=== PATIENT | female | born 1935 | race Caucasian/White ===

== ENCOUNTER 2020-03-05 11:24 | Outpatient (CLI) | payer MEDICARE, OTHER, SELFPAY ==
--- NOTE | ~2020-03-05 | XR_ITS ---
XR hip LT min 2V 03/05/2020 12:06 Indication: Left hip pain Procedure: 3 views left hip Comparison: No prior studies for comparison. Findings: Mild osteoarthritis of the left hip. There is lower lumbar spondylosis incompletely visuali zed. No fracture or traumatic malalignment. No focal soft tissue abnormality. No foreign bodies. Impression: 1: Mild osteoarthritis of the left hip. Reviewed, dictated and finalized at location A. Impression: 1: Mild osteoarthritis of the left hip.
--- NOTE | ~2020-03-05 | XR_ITS ---
EXAMINATION: XR knee LT min 4V DATE: 03/05/2020 12:06 INDICATION: Left knee pain TECHNIQUE: Four views of the left knee were obtained. COMPARISON: None. FINDINGS: Alignment is normal. No fracture or osteochondral lesion. There is mild tricompartmental os teoarthritis characterized by tiny marginal osteophytes. No joint effusion/synovitis. Soft tissues a re unremarkable. IMPRESSION: 1. No acute osseous abnormality. Reviewed, dictated and finalized at location A.
== END 2020-03-05 11:25 | disposition home or self-care (01) ==
LOC: ANHIMG 11:34
PROVIDERS: PCP Family Medicine; Visit Provider Family Medicine
DX: M25.552 Pain in left hip (principal); M25.562 Pain in left knee; M16.12 Unilateral primary osteoarthritis, left hip
CPT/HCPCS: 73502; 73564

== ENCOUNTER 2020-05-11 12:57 | Outpatient (CLI) | payer MEDICARE, OTHER, SELFPAY ==
--- NOTE | ~2020-05-11 | MM_ITS ---
EXAMINATION: MM diagnostic mammo unilat LT HISTORY: Follow-up left breast calcifications TECHNIQUE: Additional 3-D tomosynthesis images of the left breast were performed and synthetic 2-D im ages were generated. CAD analysis was submitted and interpreted. COMPARISON: Comparison to multiple prior studies sequentially, with oldest reviewed study dated 06/08. BREAST PARENCHYMAL COMPOSITION: The breasts are heterogenously dense, which may obscure small masses. FINDINGS: There are clustered calcifications in the upper outer quadrant of the left breast which hav e increased in number and density compared with prior examinations. These are not specifically benign . IMPRESSION: 1. Clustered nonspecific left breast calcifications, upper outer quadrant. 2. Stereotactic left breast biopsy recommended. BI-RADS category 4, suspicious findings. Reviewed, dictated and finalized at location B.
== END 2020-05-11 12:58 | disposition home or self-care (01) ==
LOC: ANHIMG 13:00
PROVIDERS: PCP Family Medicine; Visit Provider Physician Assistant
DX: R92.8 Other abnormal and inconclusive findings on diagnostic imaging of breast (principal)
CPT/HCPCS: 77065

== ENCOUNTER 2020-06-07 12:20 | Outpatient (CLI) | payer MEDICARE, OTHER, SELFPAY ==
--- NOTE | ~2020-06-07 | MM_ITS ---
EXAMINATION: MM stereotactic bx LT, MM post biopsy diagnostic LT, MM stereotactic specimen LT DATE: 06/07/2020 INDICATION: Abnormal calcifications in the left breast. Stereotactic core biopsy is requested evalua te for malignancy.] TECHNIQUE AND FINDINGS: Dr. Taye Elder performed the procedure. The risks and potential benefits of the procedure were discu ssed with the patient and written informed consent was obtained. The patient was placed in the prone position clustered at the table with the left breast in lateral medial compression, and the area of interest was localized and targeted utilizing digital imaging with stereotaxis. After sterile preparation of the skin, 1% lidocaine was utilized for local anesthesia at the skin pun cture site and 1% lidocaine with epinephrine was utilized for deeper local anesthesia/is about the bi opsy site. A 9G Kids Note vacuum assisted biopsy needle was advanced to the level of the calcification o f interest from a lateral approach utilizing stereotactic guidance and a total of 6 tissue core biops ies were obtained. A specimen radiograph demonstrates that the calcifications of interest are included within the tissue cores. A tissue marker clip was then placed at the biopsy site. The needle was removed and hemosta sis was achieved. The patient tolerated the procedure well and there is no evidence of significant i mmediate complication. The patient was given verbal as well as written postprocedural instructions p rior to discharge from the department. Tissue cores were submitted to surgical pathology for histolo gic analysis. A 2-view left unilateral digital mammogram was obtained post procedure and this demonstrates that the tissue marker clip is in expected position.] IMPRESSION: 1. Successful stereotactic biopsy of calcifications in the upper outer quadrant of the left breast, followed by tissue marker clip placement. Please refer to pathology report for histologic analysis. Reviewed, dictated and finalized at location A. IMPRESSION: 1. Successful stereotactic biopsy of calcifications in the upper outer quadran t of the left breast, followed by tissue marker clip placement. Please refer t o pathology report for histologic analysis. IMPRESSION: 1. Successful stereotactic biopsy of calcifications in the upper outer quadran t of the left breast, followed by tissue marker clip placement. Please refer t o pathology report for histologic analysis.
== END 2020-06-07 12:21 | disposition home or self-care (01) ==
PROVIDERS: PCP Family Medicine; Visit Provider Surgery
DX: R92.0 Mammographic microcalcification found on diagnostic imaging of breast (principal)
CPT/HCPCS: 19081; 77065; 88305; 88342; A4648

== ENCOUNTER → 2020-06-14 13:16 | Outpatient (CLI) | payer MEDICARE, OTHER, SELFPAY ==
--- NOTE | ~2020-06-14 | DEXA_ITS ---
Bone Density Report Name: Morena Gil Age: 84 Sex: Female Ethnicity: White Date of : 1935 Indication: postmenopausal; screening for osteoporosis; parental hip fracture; height loss; Referring Provider: DANNIE MOHAN Study: Bone densitometry was performed. Exam Date: June 14, 2020 Accession number: [id number] Bone Density: Region BMD T-score Z-score Classification AP Spine (L1-L4) 0.847 -1.8 1.0 Osteopenia Femoral Neck (Left) 0.730 -1.1 1.4 Osteopenia Total Hip (Left) 0.788 -1.3 0.9 Osteopenia Femoral Neck (Right) 0.737 -1.0 1.4 Normal Total Hip (Right) 0.834 -0.9 1.3 Normal Total Hip Mean 0.811 -1.1 1.1 Osteopenia World Health Organization criteria for BMD impression classify patients as: Normal (T-score at or above -1.0), Osteopenia (T-score between -1.0 and -2.5), or Osteoporosis (T-score at or below -2.5). 10-year Fracture Risk(1): Major Osteoporotic Fracture 21% Hip Fracture 11% Reported Risk Factors: [place] (), Neck BMD=0.730, BMI=24.4, parental fracture (1) FRAX(R) Version 3.08. Fracture probability calculated for an untreated patient. Fracture probability may be lower if the patient has received treatment. Clinical Information Provided by Patient: Parent has had a hip fracture Has used the following medications: Calcium Patient maximum height was 67.5 Menopause Age: 72 Onset of menses at age 11 Number of children 0 Impression: The patient has low bone mass, based on the Total Spine T-score. The patient has an estimated ten-year risk of hip fracture of 11% and an estimated ten-year risk of major fracture of 21%, based on the WHO FRAX algorithm. The patient has risk factors, including: parental hip fracture. Discussion: BONE DENSITY IS LOW AT ONE OR MORE SKELETAL SITES. THE PATIENT'S BMD AND CLINICAL RISK FACTORS CONTRIBUTE TO THIS PATIENT'S HIGH RISK OF FRACTURE. This patient's lowest T-score is low at one or more skeletal sites. It meets the World Health Organization's (WHO) criteria for ?low bone mass? (T-score between -1.0 and -2.5). The patient's 10-year risk of hip fracture and 10 year risk of a major osteoporotic fracture as calculated by FRAX exceeds the threshold where pharmacological therapy is recommended by the National Osteoporosis Foundation (NOF). However, all treatment decisions require clinical judgment and consideration of individual patient factors, including patient preferences, comorbidities, previous drug use, risk factors not captured in the FRAX model (e.g., frailty, falls, vitamin D deficiency, increased bone turnover, interval significant decline in bone density) and possible under or overestimation of fracture risk by FRAX. The patient should follow a healthful lifestyle (good nutrition with adequate calcium and vitamin D, and appropriate
== END ==
PROVIDERS: PCP Family Medicine; Visit Provider Physician Assistant
DX: Z78.0 Asymptomatic menopausal state (principal)
CPT/HCPCS: 77080

== ENCOUNTER 2020-06-19 06:05 | Outpatient (CLI) | payer MEDICARE, OTHER, SELFPAY ==
[2020-06-19 19:00] LABS: SARS-CoV-2 RNA PCR Negative
== END 2020-06-19 06:06 | disposition home or self-care (01) ==
LOC: ANHCOVIDDT 07-16 06:06
PROVIDERS: PCP Family Medicine; Visit Provider Surgery
DX: Z01.812 Encounter for preprocedural laboratory examination (principal); Z11.59 Encounter for screening for other viral diseases
CPT/HCPCS: 87635; C9803; U0003

== ENCOUNTER 2020-06-21 00:32 | Day surgery (SDC) | payer MEDICARE, OTHER, SELFPAY ==
[2020-06-19 13:11] VITALS: BMI 24.3
[2020-06-21] VITALS (8 sets, daily range): BP systolic 132–172; BP diastolic 65–85; PULSE 67–81; RESP 7–18; TEMP 35.9–36.6; O2SAT 94–100; BMI 24.4
--- NOTE | ~2020-06-21 | NM_ITS ---
NM sentinel node inject only 06/22/2020 10:43 CDT INDICATION: Left breast cancer] TECHNIQUE: 1 Millicuries Tc 99m filtered sulfur colloid was injected and 4 aliquots in the anterior u pper outer quadrant of the breast near the areola. No images were obtained. IMPRESSION: 1: Left breast sentinel lymph node radiopharmaceutical injection. Reviewed, dictated and finalized at location A.
--- NOTE | ~2020-06-21 | MM_ITS ---
EXAMINATION: MM surgical specimen LT, MM needle loc LT MAMMOGRAPHY SPECIMEN DATE: 06/21/2020 13:31 CDT INDICATION: Abnormal left breast mammogram. TECHNIQUE: The procedure for a mammography-guided needle localization was discussed with the patient' s. Risks and benefits were detailed, including risks of bleeding, infection, pain, and nondiagnostic specimen. The patient verbalized understanding and agreed to proceed. The time out was performed to verify the patient's name, date of , and site of procedure. The p atient was placed in left breast compression, and the skin overlying the left breast was prepped in u sual fashion. Utilizing mammography guidance, a needle was advanced into the left breast. Two confi rmatory films were obtained. The patient tolerated procedure without immediate complication. A specimen radiograph was performed. FINDINGS: Two view confirmatory films of the left breast demonstrate a the wire adjacent to the tissu e marker. The tissue marker is contained within the surgical specimen.] IMPRESSION: 1. Successful mammography-guided left breast needle localization. Reviewed, dictated and finalized at location A. IMPRESSION: 1. Successful mammography-guided left breast needle localization.
--- NOTE | 2020-06-21 08:29 | ECG_ITS ---
Measurements Intervals [place] Rate: 75 P: 16 AK: 184 QRS: 29 QRSD: 71 T: 30 QT: 370 QTc: 415 Interpretive Statements SINUS RHYTHM NORMAL ECG Electronically Signed On 06-21-2020 10:59:19 CDT by Hilton Flores D.O.
--- NOTE | 2020-06-21 09:37 | SUR.PREOP ---
0900; PT TO MAMMS PER W/C
--- NOTE | 2020-06-21 09:57 | SUR.PREOP ---
0945; PT RETURNED FROM [facility]. WALKED TO BATHROOM, VOIDED.
[2020-06-21] MEDS: LACTATED RINGERS 1,000 ML 30 ML IV CONT ×2 (09:58→13:38)
--- NOTE | 2020-06-21 10:02 | WPDHPUPDATE1 ---
History and Physical Update Update Date/Time: 06/21/20 10:03 History and Physical has been reviewed, including an updated exam of the patient. There are NO changes in the patient's condition. Risks, benefits, and alternatives have been discussed and questions answered. Patient agrees to proceed with procedure.
--- NOTE | 2020-06-21 11:25 | SUR.PREOP ---
1115; PT AWARE THAT DR DANIELS IS 1 HOUR BEHIND. PT WANTS TO SIT IN RECLINER. RECLINER BROUGHT TO PREOP ROOM
--- NOTE | 2020-06-21 11:44 | WPDANESEPPF ---
Anes - Initial Pre Proc Eval Procedure: Operation Date: 06/21/20 11:00 Proposed Procedures p Ultrasound and/or Mammogram Guided Wire Localization Left Breast Lumpectomy - Jeannie Thomson MD s Left Axillary [place] Lymph Node Biopsy - Jeannie Thomson MD Date/Time: 06/21/20 11:44 Surgeon: Jeannie Thomson MD Pre Op Diagnosis: left breast DCIS Patient Data Age: 84 Gender: F Height: 5 ft 6 in Weight: 68.7 kg Last Vital Signs Temp 35.9 C L 06/21/20 08:35 Pulse 81 06/21/20 08:35 Resp 18 06/21/20 08:35 BP 154/75 H 06/21/20 08:35 Pulse Ox 97 06/21/20 08:35 Allergies Allergy/AdvReac Type Severity Reaction Status Date / Time Penicillins Allergy Unknown Rash Verified 06/21/20 08:49 Sulfa (Sulfonamide Allergy Unknown Rash Verified 06/21/20 08:49 Antibiotics) Home Medications Medication Instructions Recorded Confirmed Type benazepril 20 mg tablet 20 mg PO DAILY #90 tablet 07/25/19 06/21/20 Rx amlodipine 2.5 mg PO HS 06/19/20 06/21/20 History clonazepam 0.5 mg PO DAILY PRN 06/19/20 06/21/20 History Patient hx anesthesia problems: none Family hx anesthesia problems: none PMFSH Past Medical History Medical History Ductal carcinoma in situ (DCIS) of left breast H/O sciatica HTN (hypertension) IFG (impaired fasting glucose) Mitral valve prolapse RLS (restless legs syndrome) Surgical History Surgical History History of breast biopsy 05/30/20: stereotactic breast bx History of bunionectomy of right great toe History of lumbar discectomy History of tonsillectomy Status post left foot surgery Family History Family History Father Hypertension Cerebrovascular accident Family history of coronary artery disease Mother Hypertension Family history of coronary artery disease Social History Social History Smoking status: Never smoker Second hand tobacco smoke exposure: No Alcohol intake: current Drinks per week: 1 Alcohol use details: PT STATES VERY RRELY Substance use: never Substance use type: does not use Living arrangements: with family Gender identity (if verbalized by the patient): Female Spiritual care concerns: No Anes - Eval Final PreProcedure Day of Procedure 06/21/20 11:44 Patient weight: normal Heart: regular rate and rhythm Lungs: clear to auscultation Airway: Mallampati scale class II Neurological: alert and oriented Last oral intake: >/= 8 hours ASA classification: III Emergent: no Anesthetic plan: proceed Anesthesia type and monitoring: general LMA and standard monitoring Informed Consent: The patient's anesthetic plan and its attendant risks and benefits were discussed with the patient/family/POA. Questions were solicited and answers provided to the satisfaction of the patient/family/POA.
[2020-06-21] MEDS: ceFAZolin 2 GM/D5W 50 ML 2 GM/50 ML BAG IVPB (12:15)
--- NOTE | 2020-06-21 13:28 | SUR.OPER ---
Lumpectomy Incision- 1307 Excision- 1317 Out of room- [address] Thomson- [id number]
--- NOTE | 2020-06-21 13:37 | P.OP_ITS ---
Procedure Note - Detailed Date of procedure: 06/21/20 Pre-op diagnosis: left breast DCIS Post-op diagnosis: same Procedure performed: Left axillary sentinel lymph node biopsy with preoperative lymphoscintigraphy, left breast lumpectomy with preoperative needle localization Description of procedure: The patient was taken to the operating room and placed in the supine position. After adequate induction of general anesthesia, the patient was prepped and draped in the normal sterile fashion. A time-out was done to verify the patient's identity, as well as the procedure being performed. I began by injecting blue dye into all 4 quadrants of the nipple areolar complex. This was done with approximately 1 cc in each quadrant in the subcutaneous tissue. I then massaged the dye into the left axilla. I then proceeded to use the [place] counter to identify a hot spot in the left axilla. Once this was achieved, I used a 15 blade scalpel to make an incision over this hot spot . I then carried this incision down into the axilla. I then again used the [place] counter to identify a hot lymph node. It was noted at this point that there was a hot and blue lymph node. This was the sentinel lymph node and I carefully dissected this lymph node for excision. I was able to identify the vasculature going into the lymph node and this was clipped and transected. The lymph node will be sent to pathology for further review. There was an additional lymph node in this area that was also slightly blue and hot and will also be sent to pathology as part of the sentinel lymph node specimen. I again probed the axilla with the [place] counter and no other hot spots were identified. I then closed the axilla with 3 0 Vicryl suture. The skin was closed with 4 O Monocryl subcuticular suture. I then began the lumpectomy. I made an incision just medial to the wire following the lines of [place]. Once incision was made through the dermis, I made flaps and brought the wire into the operative field. I was able to palpate the direction of the wire in was able to at this point do a wide local excision around this wire. This was done with the [place] cautery. Once the specimen was completely removed, it was sent to radiology for confirmation of the wire and clip placement. This was confirmed by Radiology. At this point , I closed the subcutaneous tissue with 3 0 Vicryl suture. The skin was again closed with 4 O Monocryl subcuticular suture. Dermabond was placed on all wounds. The patient tolerated the procedure well and was extubated in the operating room postoperative. She will be sent to the recovery room in stable condition. Anesthesia: GLMA Surgeon: Jeannie Thomson MD Estimated blood loss (mL): 20 Drains: No Packing: No Pathology: yes Complications: No immediate complications Condition: stable Disposition: PACU Findings: Blue and hot lymph node, wire localized lumpectomy
[2020-06-21] MEDS: fentaNYL CITRATE INJ (*CRX) 100 MCG/2 ML VIAL 25 MCG IV PUSH ×3 (14:04→14:13)
== END 2020-06-21 15:40 | disposition home or self-care (01) ==
PROVIDERS: PCP Family Medicine; Visit Provider Surgery
PROC: (CPT 19301; principal; 2020-06-21 11:00)
PROC: (CPT 19301; 2020-06-21 11:00)
DX: D05.12 Intraductal carcinoma in situ of left breast (principal); I10 Essential (primary) hypertension; I34.1 Nonrheumatic mitral (valve) prolapse; G25.81 Restless legs syndrome
CPT/HCPCS: 19301; 38525; 19281; 38792; 76098; 88307; 93005; A9270; A9520; C1769; J0690; J2370; J2405; J2704; J3010; J7120

== ENCOUNTER 2024-11-20 10:48 | Emergency (ER) | payer MEDICARE, OTHER, SELFPAY ==
--- OUTSIDE RECORDS SUMMARY | 2024-11-20 10:50 | XMS_ITS ---
Author Organization [facility] Address [address] [place] [address] Care Team Providers Care Interface Analyst Name Role Phone Delta Conn MD Primary Care Provider Nadya Coronado Unavailable [phone] REASON FOR VISIT SCIT - Traditional Schedule Allergy immunotherapy Medications Medication SIG (Take, Route, Frequency, Duration) Notes Start Date End Date Status AMLODIPINE 2.5 mg 1 tab(s) orally once a day Not-Taking BENAZEPRIL 20 mg 1 tab(s) orally once a day Not-Taking amLODIPine Besylate 2.5 MG 1 tab(s) orally once a day Active CLONAZEPAM 0.5 mg 1 tab(s) orally QHS Not-Taking Artificial Tears PRESERVED 1 GTT IN EACH EYE 3 TIMES A DAY for 30 DAY(S) *Please review and pick correct strength-formula tion from [employer] options. If intended option is not shown, discontinue and re-order from Quick Search* Not-Taking ARTIFICIAL TEARS preserved 1 gtt in each eye 3 times a day for 30 day(s) Active Cetirizine HCl 10 MG 1 tab(s) orally once a day Active EpiPen 2-Brayden 0.3 MG/0.3ML as directed Injection Active clonazePAM 0.5 MG 1 tab(s) orally QHS Active Benazepril HCl 20 MG 1 tab(s) orally once a day Active EPINEPHRINE AUTO-INJECTOR 0.3 mg as directed intramuscularly once for 1 days Active CETIRIZINE HYDROCHLORIDE 10 mg 1 tab(s) orally once a day Active Encounters Encounter Location Date Provider Diagnosis [facility] [address] [place] [address] 11/01/2024 Nadya Camp Allergic rhinitis du e to pollen J30.1 ; Allergic rhinitis due to animal (cat) (dog) hair and dander J30.81 ; Other allergic rhinitis J30.89 and Other chronic allergic conjunctivitis H10.45 Assessments Encounter Date Diagnosis (ICD Code) Assessment Notes Treatment Notes Treatment Clinical Notes Section Notes 11/01/2024 Allergic rhinitis due to pollen (ICD-10 - J30.1) 11/01/2024 Allergic rhinitis due to animal (cat) (dog) hair and dander (ICD-10 - J30.81) 11/01/2024 Other allergic rhinitis (ICD-10 - J30.89) 11/01/2024 Other chronic allergic conjunctivitis (ICD-10 - H10.45) Plan Of Treatment Next Appt Details Follow Up: 1 Week, Reason: Provider Name:Nadya hammonds, 11/30/2024 09:00:00 AM, [address] [facility] [employer], [address], [place], [address], Progress Notes * Morena HENRIQUEZDOB:[birth year] (89 yo F)Acc No.[id number]:11/01/2024 SCIT-Aeroallergen Patient: Johanna WOOTEN Morena PERKINS Provider: Nirmala Camp MD :1935 A ge:89 Y S ex:Female Date:11/01/2024 Address:[address] [place] [address], [id number] Pcp:Delta Conn MD Subjective: * Chief Complaints: * S CIT - Traditional Schedule Allergy immunotherapy * HPI: * Introduction: The patient is here for scheduled immunotherapy. Please see the attached specialty form regarding the specifics of the administration of these vaccines. As per our protocol, they must undergo a screening health questionnaire (medication changes, reaction(s) to last immunotherapy dose(s), current health status, ACT (if appropriate), self-injectable epinephrine on patient(?) and peak flow (if appropriate)). Also, the patient must wait in our office for 30 minutes after receiving the vaccine(s). Furthermore, every patient must have an epinephrine pen (self-injectable) with them at the time of administration--and carry if for the following 1.5 hours after they leave our office. The patient must also have taken their antihistamine the day of the injection, preferably 2 hours prior. The consent form for SCIT (subcutaneous immunotherapy) is on file. * Medical History: * Surgical History: * Hospitalization/Major Diagno stic Procedure: * Medications: T akingEPINEPHRINE AUTO-INJECTOR 0.3 mg kit as directed intramuscularly once CETIRIZINE HYDROCHLORIDE 10 mg tablet 1 tab(s) orally once a day ARTIFICIAL TEARS preserved solution 1 gtt in each eye 3 times a day EpiPen 2-Brayden 0.3 MG/0.3ML Solution Auto-injector as directed Injection Cetirizine HCl 10 MG Tablet 1 tab(s) orally once a day clonazePAM 0.5 MG Tablet 1 tab(s) orally QHS Benazepril HCl 20 MG Tablet 1 tab(s) orally once a day amLODIPine Besylate 2.5 MG Tablet 1 tab(s) orally once a day Taking EPINEPHRINE AUTO-INJECTOR 0.3 mg kit as directed intramuscularly once Taking CETIRIZINE HYDROCHLORIDE 10 mg tablet 1 tab(s) orally once a day Taking ARTIFICIAL TEARS preserved solution 1 gtt in each eye 3 times a day Taking EpiPen 2-Brayden 0.3 MG/0.3ML Solution Auto-injector as directed Injection Taking Cetirizine HCl 10 MG Tablet 1 tab(s) orally once a day Taking clonazePAM 0.5 MG Tablet 1 tab(s) orally QHS Taking Benazepril HCl 20 MG Tablet 1 tab(s) orally once a day Taking amLODIPine Besylate 2.5 MG Tablet 1 tab(s) orally once a day Not-Taking/PRNArtificial Tears PRESERVED SOLUTION 1 GTT IN EACH EYE 3 TIMES A DAY , Notes to Pharmacist: *Please review and pick correct strength-formulation from [employer] options. If intended option is not shown, discontinue and re-order from Quick Search*CLONAZEPAM 0.5 mg tablet 1 tab(s) orally QHS BENAZEPRIL 20 mg tablet 1 tab(s) orally once a day AMLODIPINE 2.5 mg tablet 1 tab(s) orally once a day Not-Taking/PRN Artificial Tears PRESERVED SOLUTION 1 GTT IN EACH EYE 3 TIMES A DAY , Notes to Pharmacist: *Please review and pick correct strength-formulation from [employer] options. If intended option is not shown, discontinue and re-order from Quick Search*Not-Taking/PRN CLONAZEPAM 0.5 mg tablet 1 tab(s) orally QHS Not-Taking/PRN BENAZEPRIL 20 mg tablet 1 tab(s) orally once a day Not-Taking/PRN AMLODIPINE 2.5 mg tablet 1 tab(s) orally once a day Objective: * Vitals: Assessment: * Assessment: 1. A llergic rhinitis due to pollen - J30.1 (Primary) 2 . A llergic rhinitis due to animal (cat) (dog) hair and dander - J30.81 3 . O ther allergic rhinitis - J30.89 4 . O ther chronic allergic conjunctivitis - H10.45 Plan: * Treatment: * Procedure Codes: 9 5117 IMMUNOTHERAPY INJECTIONS * Preventive Medicine: Counseling: E xercise A void heavy lifting on days of allergy immunotherapy. M edication instruction: I njectable epinephrine education and instruction w/ discussion of signs and symptoms of anaphylaxis and reasons to seek urgent or emergent care, Watch for side effects of prescribed medications. E ducation: A ble to return demonstration of self-injectable epinephrine. * Follow Up: 1 Week * Billing Information: * Visit Code: * Procedure Codes: 99839 IMMUNOTHERAPY INJECTIONS. * ORATE ACCOUNT EXECUTIVE Sign off status: Completed true * Provider: Nirmala Camp MD Date: 0 11/01/2024 Generated for Shelly hurley/Cesar/Suniitting on: 0 11/20/2024 10:50 AM CDT History and Physical Notes * HPI (History of Present Illness) Category Sub-Category Detail Notes Category Not es *Introduction The patient is here for scheduled immunotherapy. Please see the attached specialty form regarding the specifics of the administration of these vaccines. As per our protocol, they must undergo a screening health questionnaire (medication changes, reaction(s) to last immunotherapy dose(s), current health status, ACT (if appropriate), self-injectable epinephrine on patient(?) and peak flow (if appropriate)). Also, the patient must wait in our office for 30 minutes after receiving the vaccine(s). Furthermore, every patient must have an epinephrine pen (self-injectable) with them at the time of administration--and carry if for the following 1.5 hours after they leave our office. The patient must also have taken their antihistamine the day of the injection, preferably 2 hours prior. The consent form for SCIT (subcutaneous immunotherapy) is on file.
--- OUTSIDE RECORDS SUMMARY | 2024-11-20 10:50 | XMS_ITS ---
Author Organization [facility] Address [address] [place] [address] Care Team Providers Care Sap Sd Analyst Name Role Phone Delta Conn MD Primary Care Provider Nadya Coronado Unavailable [phone] REASON FOR VISIT SCIT - Traditional Schedule Allergy immunotherapy Medications Medication SIG (Take, Route, Frequency, Duration) Notes Start Date End Date Status BENAZEPRIL 20 mg 1 tab(s) orally once a day Not-Taking AMLODIPINE 2.5 mg 1 tab(s) orally once a day Not-Taking Artificial Tears PRESERVED 1 GTT IN EACH EYE 3 TIMES A DAY for 30 DAY(S) *Please review and pick correct strength-formula tion from Ob Hospitalist Groupspan options. If intended option is not shown, discontinue and re-order from Quick Search* Not-Taking CLONAZEPAM 0.5 mg 1 tab(s) orally QHS Not-Taking amLODIPine Besylate 2.5 MG 1 tab(s) orally once a day Active EpiPen 2-Brayden 0.3 MG/0.3ML as directed Injection Active Cetirizine HCl 10 MG 1 tab(s) orally once a day Active ARTIFICIAL TEARS preserved 1 gtt in each eye 3 times a day for 30 day(s) Active clonazePAM 0.5 MG 1 tab(s) orally QHS Active Benazepril HCl 20 MG 1 tab(s) orally once a day Active EPINEPHRINE AUTO-INJECTOR 0.3 mg as directed intramuscularly once for 1 days Active CETIRIZINE HYDROCHLORIDE 10 mg 1 tab(s) orally once a day Active Encounters Encounter Location Date Provider Diagnosis [facility] [address] [facility] [address] [place] [address] 09/27/2024 Nadya Camp Allergic rhinitis du e to pollen J30.1 ; Allergic rhinitis due to animal (cat) (dog) hair and dander J30.81 ; Other allergic rhinitis J30.89 and Other chronic allergic conjunctivitis H10.45 Assessments Encounter Date Diagnosis (ICD Code) Assessment Notes Treatment Notes Treatment Clinical Notes Section Notes 09/27/2024 Allergic rhinitis due to pollen (ICD-10 - J30.1) 09/27/2024 Allergic rhinitis due to animal (cat) (dog) hair and dander (ICD-10 - J30.81) 09/27/2024 Other allergic rhinitis (ICD-10 - J30.89) 09/27/2024 Other chronic allergic conjunctivitis (ICD-10 - H10.45) Plan Of Treatment Next Appt Details Follow Up: 1 Week, Reason: Provider Name:Nadya hammonds, 11/30/2024 09:00:00 AM, [address] [facility] [employer], [address], [place], [address], Progress Notes * Morena HENRIQUEZDOB:[birth year] (88 yo F)Acc No.[id number]:09/27/2024 SCIT-Aeroallergen Patient: Johanna WOOTEN Morena PERKINS Provider: Nirmala Camp MD :1935 A ge:88 Y S ex:Female Date:09/27/2024 Address:[address] [place] [address], [address] Pcp:Delta Conn MD Subjective: * Chief Complaints: [...] *Please review and pick correct strength-formulation from Ob Hospitalist Groupspan options. If intended option is not shown, [...] Information: * Visit Code: * Procedure Codes: 63049 IMMUNOTHERAPY INJECTIONS. * ULATING MACHINE OPERATOR Sign off status: Completed true * Provider: Nirmala Camp MD Date: 0 09/27/2024 Generated for Shelly hurley/Cesar/Suniitting on: 0 11/20/2024 [...]
--- OUTSIDE RECORDS SUMMARY | 2024-11-20 10:50 | XMS_ITS | Patient Health Record ---
Author Organization [facility] Lucia mejia Billing Info Address [address] [place] [id number] Support Name Relationship Address Phone Morena Gil Guarantor Unknown [phone] Reason For Referral No Information Problems Problem Type SNOMED Code ICD Code Onset Dates Problem Status W/U Status Risk Notes Problem [id number] Acute upper respiratory infections of unspecified site (465.9) Active confirmed Migrated-Pr oblemList-3 [id number] [facility]-2012 Plan Of Treatment No Information Insurance Providers Payer Name Payer Address Payer Phone Subscriber Number Group Number Insured Name Patient Relationship to Insured Coverage Start Date Coverage End Date [place]ARE [place] PART B [address] [facility] [place] [id number] [phone] [id number] Morena Gil Self - patient is the insured 3 [facility] [address] [place], [place] [id number] Morena Gil Self - patient is the insured 3 3
--- OUTSIDE RECORDS SUMMARY | 2024-11-20 10:51 | XMS_ITS | Encounter Summary ---
Author Organization [facility] Address [address] [place] [address] Care Team Providers Care Youth Services Librarian Name Role Phone Nigel Masters MD, Aleta Lucas Primary Care Provider Paula vailable Encounter Details Date Type Department Care Team (Latest Contact Info) Description 06/17/2004 Outpatient Historical HIS [facility] LATASHA Manning Jr., Aleta Lucas MD NO ADDRESS ON FILE MAMMOGRAPHIC MICROCALCIFICATION (Primary Dx) Social History Tobacco Use Types Packs/Day Years Used Date Smoking Tobacco: Never Assessed Comments Unknown Sex and Gender Information Value Date Recorded Sex Assigned at Not on file Legal 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
--- OUTSIDE RECORDS SUMMARY | 2024-11-20 10:51 | XMS_ITS | Patient Health Record ---
Author Organization [facility] Address [address] [place] [address] Care Team Providers Care Trip Follower Name Role Phone Delta Conn MD Primary Care Provider Unavaila Nadya Orozco Unavailable [phone] [facility], Provider Unavailable Unavailab le Allergies No Known Allergies Reason For Referral No Information Medications Medication SIG (Take, Route, Frequency, Duration) Notes Start Date End Date Status EPINEPHRINE AUTO-INJECTOR 0.3 mg as directed intramuscularly once for 1 days Active AMLODIPINE 2.5 mg 1 tab(s) orally once a day Not-Taking BENAZEPRIL 20 mg 1 tab(s) orally once a day Not-Taking ARTIFICIAL TEARS preserved 1 gtt in each eye 3 times a day for 30 day(s) Active CETIRIZINE HYDROCHLORIDE 10 mg 1 tab(s) orally once a day Active Cetirizine HCl 10 MG 1 tab(s) orally once a day Active EpiPen 2-Brayden 0.3 MG/0.3ML as directed Injection Active clonazePAM 0.5 MG 1 tab(s) orally QHS Active amLODIPine Besylate 2.5 MG 1 tab(s) orally once a day Active Benazepril HCl 20 MG 1 tab(s) orally once a day Active CLONAZEPAM 0.5 mg 1 tab(s) orally QHS Not-Taking Artificial Tears PRESERVED 1 GTT IN EACH EYE 3 TIMES A DAY for 30 DAY(S) *Please review and pick correct strength-formula tion from Medispan options. If intended option is not shown, discontinue and re-order from Quick Search* Not-Taking Social History Tobacco Use: Social History Observation Description Date Details (start date - stop date) Never Smoker NA - NA Smoking Smart Form: Question Answer Notes Are you a: never smoker Problems Problem Type SNOMED Code ICD Code Onset Dates Problem Status W/U Status Risk Notes Problem Chronic allergic conjunctivitis (44302089) Other chronic allergic conjunctivitis (H10.45) Active confirmed Problem Allergic rhinitis caused by pollen (disorder) (82459966) Allergic rhinitis due to pollen (J30.1) Active confirmed Problem Allergic rhinitis (66200380) Other allergic rhinitis (J30.89) Active confirmed Problem Allergic rhinitis caused by animal hair and dander (602067348176481) Allergic rhinitis due to animal (cat) (dog) hair and dander (J30.81) Active confirmed Vital Signs Oximetry 97 % 08/02/2024 Blood pressure diastolic 79 mm Hg 08/02/2024 Height 66 in 08/02/2024 Blood pressure systolic 148 mm Hg 08/02/2024 Weight 152 lbs 08/02/2024 BMI 24.53 kg/m2 08/02/2024 Encounters Encounter Location Date Provider Diagnosis [address] [phone] 02/20/2024 Provider [facility] [address] [place] [phone] 11/25/2023 Nadya Camp Allergic rhinitis du e to pollen J30.1 ; Allergic rhinitis due to animal (cat) (dog) hair and dander J30.81 ; Other allergic rhinitis J30.89 and Other chronic allergic conjunctivitis H10.45 [facility] [address] [place] [phone] 12/02/2023 Nadya Camp Allergic rhinitis du e to pollen J30.1 ; Allergic rhinitis due to animal (cat) (dog) hair and dander J30.81 ; Other allergic rhinitis J30.89 and Other chronic allergic conjunctivitis H10.45 [facility] [address] [place] [phone] 12/09/2023 Nadya Camp Allergic rhinitis du e to pollen J30.1 ; Allergic rhinitis due to animal (cat) (dog) hair and dander J30.81 ; Other allergic rhinitis J30.89 and Other chronic allergic conjunctivitis H10.45 [facility] [address] [place], [place] [email or web address] [address] [place] [address] 12/16/2023 Nadya Camp Allergic rhinitis du e to pollen J30.1 ; Allergic rhinitis due to animal (cat) (dog) hair and dander J30.81 ; Other allergic rhinitis J30.89 and Other chronic allergic conjunctivitis H10.45 [facility] [address] [place], [place] [email or web address] [address] [place] [address] 12/23/2023 Nadya Camp Allergic rhinitis du e to pollen J30.1 ; Allergic rhinitis due to animal (cat) (dog) hair and dander J30.81 ; Other allergic rhinitis J30.89 and Other chronic allergic conjunctivitis H10.45 [facility] [address] [place], [place] [email or web address] [address] [place] [address] 12/30/2023 Nadya Camp Allergic rhinitis du e to pollen J30.1 ; Allergic rhinitis due to animal (cat) (dog) hair and dander J30.81 ; Other allergic rhinitis J30.89 and Other chronic allergic conjunctivitis H10.45 [facility] [address] [place], [place] [email or web address] [address] [place] [address] 01/06/2024 Nadya Camp Allergic rhinitis du e to pollen J30.1 ; Allergic rhinitis due to animal (cat) (dog) hair and dander J30.81 ; Other allergic rhinitis J30.89 and Other chronic allergic conjunctivitis H10.45 [facility] [address] [place], [place] [email or web address] [address] [place] [phone] 01/13/2024 Nadya Camp Allergic rhinitis du e to pollen J30.1 ; Allergic rhinitis due to animal (cat) (dog) hair and dander J30.81 ; Other allergic rhinitis J30.89 and Other chronic allergic conjunctivitis H10.45 [facility] [address] [place], [place] [address] [address] [place] [phone] 01/20/2024 Nadya Camp Allergic rhinitis du e to pollen J30.1 ; Allergic rhinitis due to animal (cat) (dog) hair and dander J30.81 ; Other allergic rhinitis J30.89 and Other chronic allergic conjunctivitis H10.45 [facility] [address] [place], [place] [email or web address] [address] [place] [address] 01/27/2024 Nadya Camp Allergic rhinitis du e to pollen J30.1 ; Allergic rhinitis due to animal (cat) (dog) hair and dander J30.81 ; Other allergic rhinitis J30.89 and Other chronic allergic conjunctivitis H10.45 [facility] [address] [place], [place] [email or web address] [address] [place] [address] 02/03/2024 Nadyatosha Camp Allergic rhinitis du e to pollen J30.1 ; Allergic rhinitis due to animal (cat) (dog) hair and dander J30.81 ; Other allergic rhinitis J30.89 and Other chronic allergic conjunctivitis H10.45 [facility] [address] [place], [place] [email or web address] [address] [place] [address] 02/17/2024 Nadya Camp Allergic rhinitis du e to pollen J30.1 ; Allergic rhinitis due to animal (cat) (dog) hair and dander J30.81 ; Other allergic rhinitis J30.89 and Other chronic allergic conjunctivitis H10.45 [facility] [address] [place], [place] [email or web address] [address] [place] [address] 02/24/2024 Nadya Camp Allergic rhinitis du e to pollen J30.1 ; Allergic rhinitis due to animal (cat) (dog) hair and dander J30.81 ; Other allergic rhinitis J30.89 and Other chronic allergic conjunctivitis H10.45 [facility] [address] [place], [place] [email or web address] [address] [place] [address] 03/02/2024 Nadyatosha Camp Allergic rhinitis du e to pollen J30.1 ; Allergic rhinitis due to animal (cat) (dog) hair and dander J30.81 ; Other allergic rhinitis J30.89 and Other chronic allergic conjunctivitis H10.45 [facility] [address] [place], [place] [address] [address] [place] [phone] 03/09/2024 Nadyatosha Camp Allergic rhinitis du e to pollen J30.1 ; Allergic rhinitis due to animal (cat) (dog) hair and dander J30.81 ; Other allergic rhinitis J30.89 and Other chronic allergic conjunctivitis H10.45 [facility] [address] [place], [place] [email or web address] [address] [place] [phone] 03/16/2024 Nadya Kamm Allergic rhinitis du e to pollen J30.1 ; Allergic rhinitis due to animal (cat) (dog) hair and dander J30.81 ; Other allergic rhinitis J30.89 and Other chronic allergic conjunctivitis H10.45 [facility] [address] [place], [place] [email or web address] [address] [address] 03/23/2024 Nadya Zoë Allergic rhinitis du e to pollen J30.1 ; Allergic rhinitis due to animal (cat) (dog) hair and dander J30.81 ; Other allergic rhinitis J30.89 and Other chronic allergic conjunctivitis H10.45 [facility] [address] [place] [address] [employer] [address] [address] 03/30/2024 Nadyatosha Kamm Allergic rhinitis du e to pollen J30.1 ; Allergic rhinitis due to animal (cat) (dog) hair and dander J30.81 ; Other allergic rhinitis J30.89 and Other chronic allergic conjunctivitis H10.45 [facility] [address] [place] [address] [employer] [address] [address] 04/06/2024 Nadyatosha Kamm Allergic rhinitis du e to pollen J30.1 ; Allergic rhinitis due to animal (cat) (dog) hair and dander J30.81 ; Other allergic rhinitis J30.89 and Other chronic allergic conjunctivitis H10.45 [facility] [address] [place], [place] [email or web address] [address] [place] [address] 04/13/2024 Nadya Zoë Allergic rhinitis du e to pollen J30.1 ; Allergic rhinitis due to animal (cat) (dog) hair and dander J30.81 ; Other allergic rhinitis J30.89 and Other chronic allergic conjunctivitis H10.45 [facility] [address] [place], [place] [address] [address] [place] [phone] 04/28/2024 Nadya Zoë Allergic rhinitis du e to pollen J30.1 ; Allergic rhinitis due to animal (cat) (dog) hair and dander J30.81 ; Other allergic rhinitis J30.89 and Other chronic allergic conjunctivitis H10.45 [facility] [address] [place], [place] [email or web address] [address] [address] 05/11/2024 Nadya Camp Allergic rhinitis du e to pollen J30.1 ; Allergic rhinitis due to animal (cat) (dog) hair and dander J30.81 ; Other allergic rhinitis J30.89 and Other chronic allergic conjunctivitis H10.45 [facility] [address] [place], [place] [email or web address] [address] [address] 05/25/2024 Nadyatosha Camp Allergic rhinitis du e to pollen J30.1 ; Allergic rhinitis due to animal (cat) (dog) hair and dander J30.81 ; Other allergic rhinitis J30.89 and Other chronic allergic conjunctivitis H10.45 [facility] [address] [place] [address] [employer] [address] [address] 06/08/2024 Nadya Camp Allergic rhinitis du e to pollen J30.1 ; Allergic rhinitis due to animal (cat) (dog) hair and dander J30.81 ; Other allergic rhinitis J30.89 and Other chronic allergic conjunctivitis H10.45 [facility] [address] [place], [place] [email or web address] [address] [address] 07/06/2024 Nadya Camp Allergic rhinitis du e to pollen J30.1 ; Allergic rhinitis due to animal (cat) (dog) hair and dander J30.81 ; Other allergic rhinitis J30.89 and Other chronic allergic conjunctivitis H10.45 [facility] [address] [place], [place] [email or web address] [address] [address] 07/13/2024 Nadyatosha Camp Allergic rhinitis du e to pollen J30.1 ; Allergic rhinitis due to animal (cat) (dog) hair and dander J30.81 ; Other allergic rhinitis J30.89 and Other chronic allergic conjunctivitis H10.45 [facility] [address] [place], [place] [address] [address] [place] [address] 07/19/2024 Nadyatosha Camp Allergic rhinitis du e to pollen J30.1 ; Allergic rhinitis due to animal (cat) (dog) hair and dander J30.81 ; Other allergic rhinitis J30.89 and Other chronic allergic conjunctivitis H10.[address] [address] 08/02/2024 Nadya Camp Allergic rhinitis du e to pollen J30.1 ; Other chronic allergic conjunctivitis H10.45 ; Allergic rhinitis due to animal (cat) (dog) hair and dander J30.81 and Other allergic rhinitis J30.[address] [address] 08/29/2024 Nadya Camp Allergic rhinitis du e to pollen J30.1 ; Allergic rhinitis due to animal (cat) (dog) hair and dander J30.81 ; Other allergic rhinitis J30.89 and Other chronic allergic conjunctivitis H10.[address] [address] 09/27/2024 Nadya Camp Allergic rhinitis du e to pollen J30.1 ; Allergic rhinitis due to animal (cat) (dog) hair and dander J30.81 ; Other allergic rhinitis J30.89 and Other chronic allergic conjunctivitis H10.[address] [address] 11/01/2024 Nadya Camp Allergic rhinitis du e to pollen J30.1 ; Allergic rhinitis due to animal (cat) (dog) hair and dander J30.81 ; Other allergic rhinitis J30.89 and Other chronic allergic conjunctivitis H10.[address] [address] 07/13/2024 Nadya Camp Assessments Encounter Date Diagnosis (ICD Code) Assessment Notes Treatment Notes Treatment Clinical Notes Section Notes 11/25/2023 Allergic rhinitis due to pollen (ICD-10 - J30.1) 12/02/2023 Allergic rhinitis due to pollen (ICD-10 - J30.1) 12/09/2023 Allergic rhinitis due to pollen (ICD-10 - J30.1) 12/16/2023 Allergic rhinitis due to pollen (ICD-10 - J30.1) 12/23/2023 Allergic rhinitis due to pollen (ICD-10 - J30.1) 12/30/2023 Allergic rhinitis due to pollen (ICD-10 - J30.1) 01/06/2024 Allergic rhinitis due to pollen (ICD-10 - J30.1) 01/13/2024 Allergic rhinitis due to pollen (ICD-10 - J30.1) 01/20/2024 Allergic rhinitis due to pollen (ICD-10 - J30.1) 01/27/2024 Allergic rhinitis due to pollen (ICD-10 - J30.1) 02/03/2024 Allergic rhinitis due to pollen (ICD-10 - J30.1) 02/17/2024 Allergic rhinitis due to pollen (ICD-10 - J30.1) 02/24/2024 Allergic rhinitis due to pollen (ICD-10 - J30.1) 03/02/2024 Allergic rhinitis due to pollen (ICD-10 - J30.1) 03/09/2024 Allergic rhinitis due to pollen (ICD-10 - J30.1) 03/16/2024 Allergic rhinitis due to pollen (ICD-10 - J30.1) 03/23/2024 Allergic rhinitis due to pollen (ICD-10 - J30.1) 03/30/2024 Allergic rhinitis due to pollen (ICD-10 - J30.1) 04/06/2024 Allergic rhinitis due to pollen (ICD-10 - J30.1) 04/13/2024 Allergic rhinitis due to pollen (ICD-10 - J30.1) 04/28/2024 Allergic rhinitis due to pollen (ICD-10 - J30.1) 05/11/2024 Allergic rhinitis due to pollen (ICD-10 - J30.1) 05/25/2024 Allergic rhinitis due to pollen (ICD-10 - J30.1) 06/08/2024 Allergic rhinitis due to pollen (ICD-10 - J30.1) 07/06/2024 Allergic rhinitis due to pollen (ICD-10 - J30.1) 07/13/2024 Allergic rhinitis due to pollen (ICD-10 - J30.1) 07/19/2024 Allergic rhinitis due to pollen (ICD-10 - J30.1) 08/02/2024 Other chronic allergic conjunctivitis (ICD-10 - H10.45) Given ocular signs and symptoms I encouraged allergy avoidance measures and meds as above. She also appears to suffer from dry eyes and recommend continuing artificial tears as needed. 08/02/2024 Allergic rhinitis due to pollen (ICD-10 - J30.1) Morena clearly suffers from atopic disease based upon our skin testing and clinical history. Accordingly, we have introduced a new, aggressive medication regimen, discussed nasal washes and allergy-specific avoidance measures. She is tolerating SCIT without large local or systemic symptoms. She was instructed to carry her epinephrine autoinjector for 2 hours after leaving the office. 08/29/2024 Allergic rhinitis due to pollen (ICD-10 - J30.1) 09/27/2024 Allergic rhinitis due to pollen (ICD-10 - J30.1) 11/01/2024 Allergic rhinitis due to pollen (ICD-10 - J30.1) 11/01/2024 Allergic rhinitis due to animal (cat) (dog) hair and dander (ICD-10 - J30.81) 09/27/2024 Allergic rhinitis due to animal (cat) (dog) hair and dander (ICD-10 - J30.81) 08/29/2024 Allergic rhinitis due to animal (cat) (dog) hair and dander (ICD-10 - J30.81) 08/02/2024 Allergic rhinitis due to animal (cat) (dog) hair and dander (ICD-10 - J30.81) 07/19/2024 Allergic rhinitis due to animal (cat) (dog) hair and dander (ICD-10 - J30.81) 07/13/2024 Allergic rhinitis due to animal (cat) (dog) hair and dander (ICD-10 - J30.81) 07/06/2024 Allergic rhinitis due to animal (cat) (dog) hair and dander (ICD-10 - J30.81) 06/08/2024 Allergic rhinitis due to animal (cat) (dog) hair and dander (ICD-10 - J30.81) 05/25/2024 Allergic rhinitis due to animal (cat) (dog) hair and dander (ICD-10 - J30.81) 05/11/2024 Allergic rhinitis due to animal (cat) (dog) hair and dander (ICD-10 - J30.81) 04/28/2024 Allergic rhinitis due to animal (cat) (dog) hair and dander (ICD-10 - J30.81) 04/13/2024 Allergic rhinitis due to animal (cat) (dog) hair and dander (ICD-10 - J30.81) 04/06/2024 Allergic rhinitis due to animal (cat) (dog) hair and dander (ICD-10 - J30.81) 03/30/2024 Allergic rhinitis due to animal (cat) (dog) hair and dander (ICD-10 - J30.81) 03/23/2024 Allergic rhinitis due to animal (cat) (dog) hair and dander (ICD-10 - J30.81) 03/16/2024 Allergic rhinitis due to animal (cat) (dog) hair and dander (ICD-10 - J30.81) 03/09/2024 Allergic rhinitis due to animal (cat) (dog) hair and dander (ICD-10 - J30.81) 03/02/2024 Allergic rhinitis due to animal (cat) (dog) hair and dander (ICD-10 - J30.81) 02/24/2024 Allergic rhinitis due to animal (cat) (dog) hair and dander (ICD-10 - J30.81) 02/17/2024 Allergic rhinitis due to animal (cat) (dog) hair and dander (ICD-10 - J30.81) 02/03/2024 Allergic rhinitis due to animal (cat) (dog) hair and dander (ICD-10 - J30.81) 01/27/2024 Allergic rhinitis due to animal (cat) (dog) hair and dander (ICD-10 - J30.81) 01/20/2024 Allergic rhinitis due to animal (cat) (dog) hair and dander (ICD-10 - J30.81) 01/13/2024 Allergic rhinitis due to animal (cat) (dog) hair and dander (ICD-10 - J30.81) 01/06/2024 Allergic rhinitis due to animal (cat) (dog) hair and dander (ICD-10 - J30.81) 12/30/2023 Allergic rhinitis due to animal (cat) (dog) hair and dander (ICD-10 - J30.81) 12/23/2023 Allergic rhinitis due to animal (cat) (dog) hair and dander (ICD-10 - J30.81) 12/16/2023 Allergic rhinitis due to animal (cat) (dog) hair and dander (ICD-10 - J30.81) 12/09/2023 Allergic rhinitis due to animal (cat) (dog) hair and dander (ICD-10 - J30.81) 12/02/2023 Allergic rhinitis due to animal (cat) (dog) hair and dander (ICD-10 - J30.81) 11/25/2023 Allergic rhinitis due to animal (cat) (dog) hair and dander (ICD-10 - J30.81) 11/25/2023 Other allergic rhinitis (ICD-10 - J30.89) 12/02/2023 Other allergic rhinitis (ICD-10 - J30.89) 12/09/2023 Other allergic rhinitis (ICD-10 - J30.89) 12/16/2023 Other allergic rhinitis (ICD-10 - J30.89) 12/23/2023 Other allergic rhinitis (ICD-10 - J30.89) 12/30/2023 Other allergic rhinitis (ICD-10 - J30.89) 01/06/2024 Other allergic rhinitis (ICD-10 - J30.89) 01/13/2024 Other allergic rhinitis (ICD-10 - J30.89) 01/20/2024 Other allergic rhinitis (ICD-10 - J30.89) 01/27/2024 Other allergic rhinitis (ICD-10 - J30.89) 02/03/2024 Other allergic rhinitis (ICD-10 - J30.89) 02/17/2024 Other allergic rhinitis (ICD-10 - J30.89) 02/24/2024 Other allergic rhinitis (ICD-10 - J30.89) 03/02/2024 Other allergic rhinitis (ICD-10 - J30.89) 03/09/2024 Other allergic rhinitis (ICD-10 - J30.89) 03/16/2024 Other allergic rhinitis (ICD-10 - J30.89) 03/23/2024 Other allergic rhinitis (ICD-10 - J30.89) 03/30/2024 Other allergic rhinitis (ICD-10 - J30.89) 04/06/2024 Other allergic rhinitis (ICD-10 - J30.89) 04/13/2024 Other allergic rhinitis (ICD-10 - J30.89) 04/28/2024 Other allergic rhinitis (ICD-10 - J30.89) 05/11/2024 Other allergic rhinitis (ICD-10 - J30.89) 05/25/2024 Other allergic rhinitis (ICD-10 - J30.89) 06/08/2024 Other allergic rhinitis (ICD-10 - J30.89) 07/06/2024 Other allergic rhinitis (ICD-10 - J30.89) 07/13/2024 Other allergic rhinitis (ICD-10 - J30.89) 07/19/2024 Other allergic rhinitis (ICD-10 - J30.89) 08/02/2024 Other allergic rhinitis (ICD-10 - J30.89) 08/29/2024 Other allergic rhinitis (ICD-10 - J30.89) 09/27/2024 Other allergic rhinitis (ICD-10 - J30.89) 11/01/2024 Other allergic rhinitis (ICD-10 - J30.89) 11/01/2024 Other chronic allergic conjunctivitis (ICD-10 - H10.45) 09/27/2024 Other chronic allergic conjunctivitis (ICD-10 - H10.45) 08/29/2024 Other chronic allergic conjunctivitis (ICD-10 - H10.45) 07/19/2024 Other chronic allergic conjunctivitis (ICD-10 - H10.45) 07/13/2024 Other chronic allergic conjunctivitis (ICD-10 - H10.45) 07/06/2024 Other chronic allergic conjunctivitis (ICD-10 - H10.45) 06/08/2024 Other chronic allergic conjunctivitis (ICD-10 - H10.45) 05/25/2024 Other chronic allergic conjunctivitis (ICD-10 - H10.45) 05/11/2024 Other chronic allergic conjunctivitis (ICD-10 - H10.45) 04/28/2024 Other chronic allergic conjunctivitis (ICD-10 - H10.45) 04/13/2024 Other chronic allergic conjunctivitis (ICD-10 - H10.45) 04/06/2024 Other chronic allergic conjunctivitis (ICD-10 - H10.45) 03/30/2024 Other chronic allergic conjunctivitis (ICD-10 - H10.45) 03/23/2024 Other chronic allergic conjunctivitis (ICD-10 - H10.45) 03/16/2024 Other chronic allergic conjunctivitis (ICD-10 - H10.45) 03/09/2024 Other chronic allergic conjunctivitis (ICD-10 - H10.45) 03/02/2024 Other chronic allergic conjunctivitis (ICD-10 - H10.45) 02/24/2024 Other chronic allergic conjunctivitis (ICD-10 - H10.45) 02/17/2024 Other chronic allergic conjunctivitis (ICD-10 - H10.45) 02/03/2024 Other chronic allergic conjunctivitis (ICD-10 - H10.45) 01/27/2024 Other chronic allergic conjunctivitis (ICD-10 - H10.45) 01/20/2024 Other chronic allergic conjunctivitis (ICD-10 - H10.45) 01/13/2024 Other chronic allergic conjunctivitis (ICD-10 - H10.45) 01/06/2024 Other chronic allergic conjunctivitis (ICD-10 - H10.45) 12/30/2023 Other chronic allergic conjunctivitis (ICD-10 - H10.45) 12/23/2023 Other chronic allergic conjunctivitis (ICD-10 - H10.45) 12/16/2023 Other chronic allergic conjunctivitis (ICD-10 - H10.45) 12/09/2023 Other chronic allergic conjunctivitis (ICD-10 - H10.45) 12/02/2023 Other chronic allergic conjunctivitis (ICD-10 - H10.45) 11/25/2023 Other chronic allergic conjunctivitis (ICD-10 - H10.45) Plan Of Treatment Next Appt Details Provider Name:Nadya hammonds, 11/30/2024 09:00:00 AM, [address] [facility], [address], [place], [address], Insurance Providers Payer Name Payer Address Payer Phone Subscriber Number Group Number Insured Name Patient Relationship to Insured Coverage Start Date Coverage End Date [employer] (Medicare) Attention Claims [address] [facility] [place] [address] [id number] Morena Henriquez Self - patient is the insured [facility] [employer] [facility] [address] [place] [id number] Jayson Kiran Spouse - patient is the spouse of the insured Medical (General) History Medical History History ICD Code Essential (primary) hypertension I10 Other allergic rhinitis J30.89 Other chronic allergic conjunctivitis H1 0.45 Surgical History Surgery Date(Month/Year) L4-5,L5-S1 fusion 2020
--- OUTSIDE RECORDS SUMMARY | 2024-11-20 10:51 | XMS_ITS ---
Author Organization [facility] Address [address] [place] [address] Care Team Providers Care Door Repairman Name Role Phone Delta Conn MD Primary Care Provider Nadya Coronado Unavailable [phone] REASON FOR VISIT SCIT (Aeroallergen) Encounters Encounter Location Date Provider Diagnosis [facility] [address] [facility] [address] [place] [address] 10/25/2024 Nadya Camp Plan Of Treatment Next Appt Details Provider Name:Nadya hammonds, 11/30/2024 09:00:00 AM, [address] [facility], [address], [place], [address], Progress Notes * Morena HENRIQUEZDOB:[birth year] (89 yo F)Acc No.[id number]:10/25/2024 SCIT-Aeroallergen Patient: Johanna FRANKLINMorena ALTAMIRANO Provider: Nirmala Camp MD :1935 A ge:89 Y S ex:Female Date:10/25/2024 Address:[address], [address], [place], [id number] Pcp:Delta Conn MD Subjective: * Chief Complaints: * 1 . SCIT (Aeroallergen). * Medical History: Objective: * Vitals: Assessment: Plan: * Treatment: * Billing Information: * Visit Code: * Procedure Codes: * Electronic signature of Janna Camp MD on 11/20/2024 at 10:50 AM CDT Sign off status: Pending * Provider: Nirmala Camp MD Date: 0 10/25/2024 Generated for Shelly hurley/Cesar/Carley on: 0 11/20/2024 10:50 AM CDT
--- OUTSIDE RECORDS SUMMARY | 2024-11-20 10:51 | XMS_ITS | Clinical Summary ---
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 Gender Identity Not on file Sexual Orientation Not on file Occupation Industry Job Start Date Job End Date Not on file Not on file Not on file Not on file Plan of Treatment Health Maintenance Due Date Last Done Comments DTAP/TDAP/TD VACCINES (1 - Tdap) 1956 PNEUMOCOCCAL VACCINE 50+ YEARS (1 of 1 - PCV) 10/07/18 88 ZOSTER VACCINE (1 of 2) 1987 OSTEOPOROSIS SCREENING 2002 RSV VACCINE (60+ or ) (1 - 1-dose 75+ series) 2012 INFLUENZA VACCINE (#1) 2024 Insurance MEDICARE PART A AND B FOR LIFE Care Teams Residential Gas Heat Technician Relationship Specialty Start Date End Date Aleta Manning Jr., MD PCP - General Obstetrics and Gynecology 06/23/17
--- OUTSIDE RECORDS SUMMARY | 2024-11-20 10:51 | XMS_ITS | Encounter Summary ---
Author Organization [facility] Address [address] [place] [address] Care Team Providers Care Batch Unit Treater Name Role Phone Nigel Masters MD, Aleta Lucas Primary Care Provider Paula vailable Encounter Details Date Type Department Care Team (Latest Contact Info) Description 06/06/2005 Outpatient Historical [facility] Manning Jr., Aleta Lucas MD NO ADDRESS ON FILE SCREENING MAMM-MAILG NEOPL NEC (Primary Dx) Social History Tobacco Use Types Packs/Day Years Used Date Smoking Tobacco: Never Assessed Comments Unknown Sex and Gender Information Value Date Recorded Sex Assigned at Not on file 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
[2024-11-20 10:53] VITALS: BP 122/64; PULSE 107; RESP 16; TEMP 36.5; O2SAT 98
--- OUTSIDE RECORDS SUMMARY | 2024-11-20 11:46 | XMS_ITS | Encounter Summary ---
Author Organization [facility] Address 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
--- OUTSIDE RECORDS SUMMARY | 2024-11-20 11:46 | XMS_ITS | Clinical Summary ---
Author Organization 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
--- OUTSIDE RECORDS SUMMARY | 2024-11-20 11:46 | XMS_ITS | Encounter Summary ---
Author Organization [facility] Address [address] [place] [address] Care Team Providers Care Plastic Top Assembler Name Role Phone Nigel Masters MD, Aleta Lucas Primary Care Provider Paula vailable Encounter Details Date Type Department Care Team (Latest Contact Info) Description 06/17/2004 Outpatient Historical HIS [facility] Manning Jr., Aleta Lucas MD NO ADDRESS ON FILE MAMMOGRAPHIC MICROCALCIFICATION (Primary Dx) Social History Tobacco Use Types Packs/Day Years Used Date Smoking Tobacco: Never Assessed Comments Unknown Sex and Gender Information Value Date Recorded Sex Assigned at Not on file Legal Sex Female 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
[2024-11-20 12:00] VITALS: BP 111/60; PULSE 90; RESP 16; O2SAT 96
[2024-11-20 12:15] LABS: Hematocrit 42.7 % (37.0-47.0); Hemoglobin 13.6 g/dL (12.0-15.0); Mean Corpuscular HGB Conc 31.9 g/dl (32-36); Mean Corpuscular Hemoglobin 29.3 pg (26-34); Platelet Count Result 315 k/mm3 (150-375); Red Blood Count 4.64 M/mm3 (4.2-5.4); White Blood Count 13.4 K/mm3 (4.5-10.0)
[2024-11-20 12:23] LABS: Alanine Aminotransferase 24 U/L (6-35); Albumin Level 4.4 g/dL (3.5-5.1); Alkaline Phosphatase 91 U/L (38-126); Anion Gap 12 mmol/L (4-12); Aspartate Amino Transferase 24 U/L (14-36); Bilirubin,Total 1.1 mg/dL (0.2-1.3); Blood Urea Nitrogen 46 mg/dL (7-17); Carbon Dioxide 22 mmol/L (22-30); Chloride 107 mmol/L (98-107); Estimated CRCL calculation 31 ml/min; Estimated Glomerular Filt Rate 47; Glucose 150 mg/dL (65-110); Lactic Acid Reflex 1.7 mmol/L (0.7-2.0); Lipase 67 U/L (23-300); Potassium 4.4 mmol/L (3.4-5.0); Sodium 141 mmol/L (137-145)
[2024-11-20 12:25] LABS: Prothrombin Time 13.6 Seconds (11.1-14.7)
[2024-11-20 12:26] LABS: Partial Thromboplastin Time 23.6 Seconds (22.3-36.8)
--- NOTE | 2024-11-20 12:29 | ED_ITS ---
HPI - General Adult General Chief complaint: Abdominal Pain Stated complaint: abd pain Time Seen by Provider: 11/20/24 11:41 History of Present Illness HPI narrative: 89-year-old female present to the emergency department for evaluation for nausea vomiting and diarrhea. Patient reports she did have a mildly upset stomach on Thursday night which she attributed to a fish meal at [place]. Patient then felt fine on Thursday but did go out to dinner and started having significant nausea vomiting and diarrhea at 5:00 a.m. thursday morning. Patient was having some abdominal cramping but denies any abdominal pain. Upon arrival emergency department patient states that she did have another episode of diarrhea in the waiting room. Patient denies any current nausea or vomiting. Patient does report that she does feel rundown this time. Related Data Allergies Allergy/AdvReac Type Severity Reaction Status Date / Time Penicillins Allergy Unknown Rash Verified 11/20/24 10:58 Sulfa (Sulfonamide Allergy Unknown Rash Verified 11/20/24 10:58 Antibiotics) Review of Systems 2 Review of Systems: All systems reviewed & are unremarkable except as noted in HPI and below PMFSH Past Medical History Medical History CKD (chronic kidney disease), stage III Ductal carcinoma in situ (DCIS) of left breast H/O sciatica HTN (hypertension) IFG (impaired fasting glucose) Macular degeneration of both eyes Mitral valve prolapse RLS (restless legs syndrome) Surgical History Surgical History H/O lymph node biopsy 06/21/2020 left axillary sentinel lymph node bx w/ preoperative lymphoscintigraphy History of breast biopsy 05/30/20: stereotactic breast bx History of bunionectomy of right great toe History of lumbar discectomy History of lumbar fusion L4/5 History of lumpectomy of left breast 06/21/2020 with preoperative needle localization History of tonsillectomy Status post left foot surgery Family History Family History Father Hypertension Cerebrovascular accident Family history of coronary artery disease Mother Hypertension Family history of coronary artery disease Social History Social History Smoking status: Never smoker Second hand tobacco smoke exposure: No Alcohol intake: current Drinks per week: 1 Alcohol use details: PT STATES VERY RARELY Substance use: never Substance use type: does not use Living arrangements: with family Occupation/Education: retired Gender identity (if verbalized by the patient): Female Sexual Orientation (if Verbalized by the Patient): Straight or Heterosexual Spiritual care concerns: No Exam 2 Narrative: APPEARANCE: Well appearing, no pain, no distress, well-nourished. HEAD: normocephalic, atraumatic. EYES: PERRLA/EOMI, conjunctivae clear. NOSE: Normal no drainage EARS:TMS clear with good light reflex. THROAT: Pharynx clear, no exudate. NECK: Supple. No adenopathy, no masses. RESPIRATORY: Airway patent, respirations nonlabored. Clear to auscultation bilaterally, no rales, rhonchi, wheezing. CARDIOVASCULAR: Regular rate and rhythm without murmurs rubs or gallops. ABDOMINAL: Soft, nontender, nondistended, normal bowel sounds MUSCULOSKELETAL: Moves all extremities. Strength/ROM intact, No edema, No calf tenderness. NEURO: Alert. Cranial nerves II through XII intact. Grossly intact SKIN: Warm, dry. Normal Color Course Vital Signs Vital signs: Vital Signs Temperature 97.7 F 11/20/24 10:53 Pulse Rate 107 H 11/20/24 10:53 Respiratory Rate 16 11/20/24 10:53 Blood Pressure 122/64 11/20/24 10:53 Pulse Oximetry 98 11/20/24 10:53 Oxygen Delivery Room Air 11/20/24 10:53 Temperature 97.7 F 11/20/24 10:53 Pulse Rate 85 11/20/24 14:30 Respiratory Rate 16 11/20/24 14:30 Blood Pressure 115/61 11/20/24 14:30 Pulse Oximetry 96 11/20/24 14:30 Oxygen Delivery Room Air 11/20/24 10:53 Medical Decision Making [facility] Narrative Medical decision making narrative: 89-year-old female present to the emergency department for evaluation for nausea vomiting and diarrhea. Patient has had no further nausea vomiting or diarrhea in the emergency department. Patient is currently afebrile but does have a leukocytosis of 13.4 stable hemoglobin of 13.6. Patient has INR of 1.0, no significant abnormalities on the patient's CMP UA was negative for infection. C diff was negative. On re-evaluation patient is requesting to be discharged home. Patient and family are updated on the plan for clear liquid diet and Zofran for nausea control. Differential Diagnosis Differential Diagnosis: Colitis, diverticulitis, dehydration, nausea vomiting diarrhea Vital Signs Vital Signs: Vital Signs Temperature 97.7 F 11/20/24 10:53 Pulse Rate 107 H 11/20/24 10:53 Respiratory Rate 16 11/20/24 10:53 Blood Pressure 122/64 11/20/24 10:53 Pulse Oximetry 98 11/20/24 10:53 Oxygen Delivery Room Air 11/20/24 10:53 Temperature 97.7 F 11/20/24 10:53 Pulse Rate 85 11/20/24 14:30 Respiratory Rate 16 11/20/24 14:30 Blood Pressure 115/61 11/20/24 14:30 Pulse Oximetry 96 11/20/24 14:30 Oxygen Delivery Room Air 11/20/24 10:53 Lab Data Lab results reviewed: Yes I reviewed the patient's lab results. 11/20/24 12:04 11/20/24 12:04 Labs: Lab Results 11/20/24 11/20/24 11/20/24 Range/Units 12:04 12:59 14:20 WBC 13.4 H (4.5-10.0) K/mm3 RBC 4.64 (4.2-5.4) M/mm3 Hgb 13.6 (12.0-15.0) g/dL Hct 42.7 (37.0-47.0) % MCV 92.0 (80-100) fl MCH 29.3 (26-34) pg MCHC 31.9 L (32-36) g/dl RDW 14.0 (11.5-14.5) % Plt Count 315 (150-375) k/mm3 MPV 10.0 (7.4-10.4) fl Immature Gran % (Auto) Not Reportable Neut % (Auto) Not Reportable Lymph % (Auto) Not Reportable [place] % (Auto) Not Reportable Eos % (Auto) Not Reportable Baso % (Auto) Not Reportable Lymph # (Auto) Not Reportable [place] # (Auto) Not Reportable Eos # (Auto) Not Reportable Baso # (Auto) Not Reportable Abs Immat Gran (auto) Not Reportable Absolute Neuts (auto) Not Reportable Absolute Nucleated RBC Not Reportable Total Counted 100 Neutrophils % (Manual) 86 H (46-73) % Band Neutrophils % 9 H (0-6) % Lymphocytes % (Manual) 3 L (18-44) % Monocytes % (Manual) 1 L (3-9) % Eosinophils % (Manual) 1 (0-4) % Nucleated RBC % Not Reportable Abs Neuts (Manual) 12.73 H (1.7-7.2) K/mm3 Abs Lymphs (Manual) 0.40 L (1.1-4.5) K/mm3 Abs Monocytes (Manual) 0.13 (0.1-0.90) K/mm3 Absolute Eos (Manual) 0.13 (0.02-0.50) K/mm3 Platelet Estimate Adequate (Adequate) Schistocytes None seen PT 13.6 (11.1-14.7) Seconds INR 1.0 APTT 23.6 (22.3-36.8) Seconds Sodium 141 (137-145) mmol/L Potassium 4.4 (3.4-5.0) mmol/L Chloride 107 (98-107) mmol/L Carbon Dioxide 22 (22-30) mmol/L Anion Gap 12 (4-12) mmol/L BUN 46 H (7-17) mg/dL Creatinine 1.09 H (0.7-1.0) mg/dL Estim Creat Clear Calc 31 ml/min Estimated GFR 47 L (59 - ) Glucose 150 H (65-110) mg/dL Lactic Acid 1.7 (0.7-2.0) mmol/L Calcium 9.0 (8.4-10.2) mg/dL Total Bilirubin 1.1 (0.2-1.3) mg/dL AST 24 (14-36) U/L ALT 24 (6-35) U/L Alkaline Phosphatase 91 (38-126) U/L Total Protein 7.0 (6.3-8.2) g/dL Albumin 4.4 (3.5-5.1) g/dL Lipase 67 (23-300) U/L Urine Color Yellow (Yellow) Urine Appearance Clear (Clear) Urine pH 5.0 (5.0-9.0) Ur Specific [place] 1.021 (1.001-1.035) Urine Protein Negative (Negative) mg/dL Urine Glucose (UA) Negative (Negative) mg/dL Urine Ketones Negative (Negative) mg/dL Ur Blood (Man) Negative (Negative) Urine Nitrate Negative (Negative) Urine Bilirubin Negative (Negative) Urine Urobilinogen 0.2 (<2.0) mg/dL Leukocyte Esterase Rfl Negative (Negative) RASTA/UL C. difficile (PCR) Negative (NEGATIVE) Discharge Plan Discharge Clinical Impression: Nausea vomiting and diarrhea Patient Disposition: Home, Self-Care Condition: Stable Instructions: Antibiotic Form, Clear Liquid Diet (ED), Acute Nausea and Vomiting (ED) Additional Instructions: Clear liquid diet for the next 1-3 days. Zofran as needed for nausea control. Have close follow-up with your primary care physician. If you have any worsening symptoms then please call or return to the emergency department. Patient Language: [place] Prescriptions: New ondansetron 4 mg tablet,disintegrating 4 mg PO Q8H PRN (Reason: nausea and vomiting) Qty: 14 0RF No Action amlodipine 2.5 mg tablet See Rx Instructions .ROUTE .COMPLEX Qty: 90 3RF Dose Instruction: TAKE 1 TABLET AT BEDTIME Rx Instructions: TAKE 1 TABLET AT BEDTIME benazepril 20 mg tablet See Rx Instructions .ROUTE .COMPLEX Qty: 90 2RF Dose Instruction: TAKE 1 TABLET DAILY Rx Instructions: TAKE 1 TABLET DAILY clonazepam 0.5 mg tablet 0.5 mg PO DAILY PRN (Reason: RESTLESS LEG SYNDROME) Qty: 90 0RF Follow-up/Referrals: Delta Conn MD [Primary Care Provider] -
[2024-11-20 12:45] VITALS: BP 107/61; PULSE 97; RESP 16; O2SAT 98
[2024-11-20] MEDS: ONDANSETRON INJ 4 MG/2 ML VIAL IV PUSH (12:45)
[2024-11-20] MEDS: LACTATED RINGERS 1,000 ML 999 ML IV CONT (12:45)
[2024-11-20 12:49] LABS: Band Neutrophils Percent 9 % (0-6); Eosinophils Absolute Manual 0.13 K/mm3 (0.02-0.50); Eosinophils Percent Manual 1 % (0-4); Lymphocytes Percent Manual 3 % (18-44); Monocytes Absolute Manual 0.13 K/mm3 (0.1-0.90); Monocytes Percent Manual 1 % (3-9); Neutrophils Absolute Manual 12.73 K/mm3 (1.7-7.2); Neutrophils Percent Manual 86 % (46-73); Platelet Estimate Adequate (Adequate); Schistocytes None Seen; Total Cells Counted 100
[2024-11-20 13:30] VITALS: BP 111/58; PULSE 88; RESP 16; O2SAT 98
[2024-11-20 13:50] LABS: Toxigenic C. Diff NEGATIVE (NEGATIVE)
[2024-11-20 14:28] LABS: Add Urine Microscopic? NO; Appearance Urine Clear (Clear); Bilirubin Urine Negative (Negative); Blood Urine Negative (Negative); Color Urine Yellow (Yellow); Glucose Urine UA Negative (Negative); Ketones Urine Negative (Negative); Leukocyte Esterase Ur Negative LEU/UL (Negative); Nitrate Urine Negative (Negative); Protein Urine Negative (Negative); Specific Grav Ur 1.021 (1.001-1.035); Urobilinogen Urine 0.2 mg/dL (<2.0)
[2024-11-20 14:30] VITALS: BP 115/61; PULSE 85; RESP 16; O2SAT 96
== END 2024-11-20 15:30 | disposition home or self-care (01) ==
PROVIDERS: Emergency Provider Emergency Medicine; PCP Family Medicine
DX: R11.2 Nausea with vomiting, unspecified (principal); R19.7 Diarrhea, unspecified; R10.9 Unspecified abdominal pain; I12.9 Hypertensive chronic kidney disease with stage 1 through stage 4 chronic kidney disease, or unspecified chronic kidney disease; N18.30 Chronic kidney disease, stage 3 unspecified; I34.1 Nonrheumatic mitral (valve) prolapse; H35.30 Unspecified macular degeneration; G25.81 Restless legs syndrome; Z98.1 Arthrodesis status; Z79.899 Other long term (current) drug therapy
CPT/HCPCS: 36415; 80053; 81003; 83605; 83690; 85025; 85610; 85730; 87493; 96361; 96374; 99284; J2405; J7120